=== PATIENT | female | born 1985 | race Caucasian/White ===

== ENCOUNTER 2018-05-21 18:18 | Emergency (ER) | payer MEDICAID ==
[~2018-05-21] VITALS: Ht 170.2 cm; Wt 92.3 kg
[~2018-05-21 18:18] MED LIST: NAPR-56 PO; NO HOME MEDS; ONDA4TAB59 PO
[2018-05-21 18:25] VITALS: BP 114/65
[2018-05-21] MEDS ORDERED: LIDOcaine 1.5% w/epinephrine 1:200,000 5ml ampul IJ ONE (19:15)
[2018-05-21] MEDS ORDERED: LIDOcaine 1% w/epiNEPHrine 1:200,000 30ml vial IJ ONE (19:20)
--- NOTE | 2018-05-21 19:28 | NUR ---
pt numbed by PA, awaiting wound repair with sutures
== END 2018-05-21 20:10 | disposition home or self-care (01) ==
LOC: ER 18:19
DX: S61.411A Laceration without foreign body of right hand, initial encounter (principal); G89.29 Other chronic pain; F12.90 Cannabis use, unspecified, uncomplicated; W18.49XA Other slipping, tripping and stumbling without falling, initial encounter; Y93.89 Activity, other specified; Y92.89 Other specified places as the place of occurrence of the external cause; Y99.9 Unspecified external cause status
CPT/HCPCS: 12002; 99283; J3490

== ENCOUNTER 2018-05-25 20:39 | Emergency (ER) | payer MEDICAID ==
[~2018-05-25] VITALS: Ht 170.2 cm; Wt 95.9 kg
[2018-05-25 20:43] VITALS: BP 90/60
--- NOTE | 2018-05-25 21:16 | NUR ---
PT IS 32 YO FEMALE C/O 3RD DIGIT SWELLING, +PAIN X2 DAYS, PT HAD CYST REMOVED 2 WEEKS AGO, FELL ONE WEEK AGO AND HAD 2 NEW SUTURES PLACED, JUST MOVED FROM [facility] AND HASN'T FOLLOW UP WITH SURGEON, WAITING TO BE EVALUATED
[2018-05-25] MEDS ORDERED: bacitracin 15gm ointment TP ONE (22:15)
--- NOTE | 2018-05-25 22:22 | NUR ---
BACTRICIN APPLIED TO SURGICAL WOUND ON HAND, DRESSED WITH NONADHERENT AND COBAN BY CAD PROGRAMMER, PT JEANINE WELL, PLANS TO ESTABLISH WITH PMD IN [place]
== END 2018-05-25 22:25 | disposition home or self-care (01) ==
LOC: ER 20:39
DX: S61.411D Laceration without foreign body of right hand, subsequent encounter (principal); G89.29 Other chronic pain; F12.10 Cannabis abuse, uncomplicated; Z79.899 Other long term (current) drug therapy; W18.49XD Other slipping, tripping and stumbling without falling, subsequent encounter
CPT/HCPCS: 99282

== ENCOUNTER 2018-10-07 13:24 | Emergency (ER) | payer MEDICAID ==
[~2018-10-07] VITALS: Ht 170.2 cm; Wt 90.9 kg
[2018-10-07] MEDS ORDERED: TRAM50TA2 PO (14:50)
[2018-10-07 15:05] VITALS: BP 97/58
== END 2018-10-07 15:06 | disposition home or self-care (01) ==
LOC: ER 13:25
DX: M79.675 Pain in left toe(s) (principal); M79.674 Pain in right toe(s); F12.90 Cannabis use, unspecified, uncomplicated; G89.29 Other chronic pain; Z79.899 Other long term (current) drug therapy; W20.8XXA Other cause of strike by thrown, projected or falling object, initial encounter; Y93.89 Activity, other specified; Y92.89 Other specified places as the place of occurrence of the external cause; Y99.8 Other external cause status
CPT/HCPCS: 73660; 99283

== ENCOUNTER 2021-05-04 17:47 | Emergency (ER) | payer MEDICAID ==
[~2021-05-04] VITALS: Ht 170.2 cm; Wt 100.0 kg
[2021-05-04 18:08] VITALS: BP 112/85
[2021-05-04 18:59] LABS: URINE HCG NEGATIVE (NEG)
[2021-05-04 19:01] LABS: CLARITY,URINE CLOUDY (Clear); COLOR,URINE YELLOW (Yellow); GLUCOSE, URINE NEGATIVE (Neg); KETONES,URINE NEGATIVE (Neg); LEUKOCYTE ESTERASE ,URINE TRACE (Neg); NITRITES, URINE POSITIVE (Neg); OCCULT BLOOD,URINE LARGE (Neg); PH,URINE 5.5 (4.8-8.0); PROTEIN,URINE 100 mg/dl (Neg)
[2021-05-04 19:11] LABS: UA COLLECTION TYPE CLN CATCH MIDSTREAM
[2021-05-04 19:14] LABS: BACTERIA,URINE 2+ /HPF (Neg); RBC,URINE TNTC /HPF (0-2); SQUAMOUS EPITHELIAL CELL,UR FEW /LPF (FEW); WBC,URINE 50-100 /HPF (0-4)
[2021-05-04] MEDS ORDERED: phenazopyridine 100mg tablet PO ONE (19:35)
[2021-05-04] MEDS ORDERED: sulfamethoxazole/trimethoprim DS (800/160mg) tablet PO ONE (19:35)
[2021-05-04] MEDS ORDERED: SULF1TAB45 PO (19:37)
[2021-05-04] MEDS ORDERED: PHEN-786 PO (19:37)
== END 2021-05-04 19:52 | disposition home or self-care (01) ==
LOC: ER 17:49
DX: N39.0 Urinary tract infection, site not specified (principal); G89.29 Other chronic pain; F12.90 Cannabis use, unspecified, uncomplicated; Z91.041 Radiographic dye allergy status; Z79.899 Other long term (current) drug therapy
CPT/HCPCS: 81001; 81025; 87077; 87088; 87186; 99283

== ENCOUNTER 2021-07-30 10:47 | Emergency (ER) | payer MEDICAID ==
[~2021-07-30] VITALS: Ht 170.2 cm; Wt 103.6 kg
[~2021-07-30 10:47] MED LIST changes: +PHEN-786 PO
[2021-07-30 10:58] VITALS: BP 120/90
== END 2021-07-30 12:17 | disposition home or self-care (01) ==
LOC: ER 10:48
DX: R07.89 Other chest pain (principal); R05.9 Cough, unspecified; G89.29 Other chronic pain; F12.90 Cannabis use, unspecified, uncomplicated; Z98.890 Other specified postprocedural states; Z72.0 Tobacco use; Z88.8 Allergy status to other drugs, medicaments and biological substances; Z79.899 Other long term (current) drug therapy; V89.2XXA Person injured in unspecified motor-vehicle accident, traffic, initial encounter; Y93.89 Activity, other specified; Y92.89 Other specified places as the place of occurrence of the external cause; Y99.8 Other external cause status
CPT/HCPCS: 71046; 99283

== ENCOUNTER 2022-05-07 09:34 | Emergency (ER) | payer MEDICAID ==
[~2022-05-07] VITALS: Ht 170.2 cm; Wt 104.0 kg
[2022-05-07 10:11] LABS: URINE HCG NEGATIVE (NEG)
[2022-05-07 10:15] LABS: BASOPHILS # (AUTO) 0.1 X10'3 (0-0.2); BASOPHILS % (AUTO) 0.7 % (0-1); EOSINOPHILS # (AUTO) 0.2 X10'3 (0-0.9); EOSINOPHILS % (AUTO) 1.8 % (0-6); HEMATOCRIT 40.4 % (35.0-45.0); LYMPHOCYTES # (AUTO) 2.4 X10'3 (1.1-4.8); LYMPHOCYTES % (AUTO) 26.2 % (21-51); MEAN CORPUSCULAR HEMOGLOBIN 28.6 PG (27.0-31.0); MEAN CORPUSCULAR HGB CONC 32.2 g/dL (33.0-36.5); MEAN CORPUSCULAR VOLUME 88.6 FL (78-98); MEAN PLATELET VOLUME 8.4 FL (7.4-10.4); MONOCYTES # (AUTO) 0.8 X10'3 (0-0.9); MONOCYTES % (AUTO) 8.4 % (2-12); NEUTROPHILS # (AUTO) 5.8 X10'3 (1.8-7.7); NEUTROPHILS % (AUTO) 62.9 % (42-75); PLATELET COUNT 317 X10'3 (140-440); RED BLOOD COUNT 4.56 X10'6 (4.20-5.60); RED CELL DISTRIBUTION WIDTH 13.4 % (11.5-14.5); WHITE BLOOD COUNT 9.3 X10'3 (4.5-11.0)
[2022-05-07 10:15] LABS: CLARITY,URINE CLOUDY (Clear); COLOR,URINE YELLOW (Yellow); GLUCOSE, URINE NEGATIVE (Neg); KETONES,URINE NEGATIVE (Neg); LEUKOCYTE ESTERASE ,URINE NEGATIVE (Neg); NITRITES, URINE NEGATIVE (Neg); OCCULT BLOOD,URINE NEGATIVE (Neg); PROTEIN,URINE NEGATIVE (Neg); UROBILINOGEN,URINE 0.2 E.U/dL (0.2-1.0)
[2022-05-07 10:21] LABS: UA COLLECTION TYPE CLN CATCH MIDSTREAM
[2022-05-07 10:21] LABS: ALANINE AMINOTRANSFERASE 26 U/L (12-78); ALBUMIN 3.8 G/DL (3.4-5.0); ALKALINE PHOSPHATASE 73 IU/L (46-116); ANION GAP 11 (8-16); ASPARTATE AMINO TRANSFERASE 18 U/L (10-37); BILIRUBIN,TOTAL 0.3 MG/DL (0.1-1.0); BLOOD UREA NITROGEN 12 MG/DL (7-18); BUN/CREATININE RATIO 17.9 (6.6-38.0); CALCIUM 8.7 MG/DL (8.5-10.1); CHLORIDE 104 MMOL/L (99-107); CREATININE 0.67 MG/DL (0.40-0.90); GLUCOSE 98 MG/DL (70-104); LIPASE 91 U/L (73-393); SODIUM 138 MMOL/L (135-145); TOTAL CARBON DIOXIDE 23.5 MMOL/L (24-32); TOTAL PROTEIN 7.5 G/DL (6.4-8.2); eGFR > 90 ML/MIN
[2022-05-07 10:25] LABS: MUCUS STRANDS MANY /LPF (Neg); SQUAMOUS EPITHELIAL CELL,UR MANY /LPF (FEW)
[2022-05-07 10:29] LABS: BACTERIA,URINE FEW /HPF (Neg); RBC,URINE 0-2 /HPF (0-2); WBC,URINE 0-4 /HPF (0-4)
[2022-05-07 11:49] VITALS: BP 108/74
--- NOTE | 2022-05-07 12:05 | NUR ---
I agree with the general assessment performed by Cynthia CARDOSO.
[2022-05-07] MEDS ORDERED: LIDOcaine 5% patch TP STA (12:33)
== END 2022-05-07 13:14 | disposition home or self-care (01) ==
LOC: ER 09:34
DX: R07.89 Other chest pain (principal); G89.29 Other chronic pain; F12.90 Cannabis use, unspecified, uncomplicated; Z98.890 Other specified postprocedural states; Z79.899 Other long term (current) drug therapy
CPT/HCPCS: 36415; 80053; 81001; 81025; 83690; 85025; 99283

== ENCOUNTER 2023-03-14 11:22 | Emergency (ER) | payer MEDICAID ==
[~2023-03-14] VITALS: Ht 170.2 cm; Wt 104.5 kg
[2023-03-14 11:32] VITALS: BP 128/60; PULSE 65; RESP 16; TEMP 97.8; O2SAT 98
[2023-03-14] MEDS ORDERED: NAPR-56 PO (13:36)
--- NOTE | 2023-03-14 14:19 | NUR ---
AUDITING CLERK ASSESSMENT REVIEWED BY ADELE RNC; CS; APPROVED
== END 2023-03-14 16:27 | disposition left against medical advice (07) ==
LOC: ER 11:22
DX: M79.672 Pain in left foot (principal); F12.90 Cannabis use, unspecified, uncomplicated; Z91.041 Radiographic dye allergy status; Z79.899 Other long term (current) drug therapy
CPT/HCPCS: 73630; 99284

== ENCOUNTER 2023-09-22 15:07 | Outpatient (CLI) | payer MEDICAID | END 2023-09-22 23:59 | disposition home or self-care (01) | LOC: RAD 15:07 | PROVIDERS: ATTEND Family Medicine | DX: M25.531 Pain in right wrist (principal); M79.601 Pain in right arm | CPT/HCPCS: 73090; 73110 ==

== ENCOUNTER 2025-01-11 10:32 | Emergency (ER) | payer MEDICAID ==
[~2025-01-11] VITALS: Ht 170.2 cm; Wt 101.0 kg
[2025-01-11 10:34] VITALS: BP 105/65; PULSE 80; RESP 16; TEMP 97.6; O2SAT 97
--- NOTE | 2025-01-11 11:00 | Physician Documentation ---
History of Present Illness ~ Chief Complaint: Finger pain Stated Complaint: L FINGER PAIN Time Seen by MD: 10:54 Primary Medical Doctor: [facility] Source: patient Mode of Arrival: POV Exam Limitations: no limitations HPI 39-year-old right-handed female with a left 5th digit pain along with pain in her 5th metacarpal which occurred this morning when she was moving a couch in her pinky finger was slammed in between the couch in the doorway. She states she is able to straighten her finger but it is painful to do so. No prior injuries in his finger. No injury to the nail plate. No pain in wrist. Tetanus within 5 years: No Medication Reconciliation Allergies: Coded Allergies: iodine (Verified Allergy, Severe, bad skin rash, 10/07/18) Uncoded Allergies: MEDICAL SOAP (Allergy, Severe, 03/14/23) Scheduled Naproxen (Naproxen), 500 MG PO Q12H Ondansetron Hcl (Ondansetron Hcl), 4 MG PO Q8H PRN N/V Phenazopyridine Hcl (Pyridium tablet), 1 TAB PO Q8H Miscellaneous Medications Home Med List (No Home Medications), (Reported) Past Medical History Past Medical History: Chronic Back Pain Past Surgical History: orthopedic surgeries Alcohol Use: None Drug Use: marijuana Lives with: Family Lives In: Home Occupation: employed Review of Systems All Other Systems at this time: Reviewed and Negative Physical Exam Vital Signs: Temperature: 97.6, Source: Temporal, Heart Rate: 80, Respiratory Rate: 16, BP: 105/65, Pulse Oximetry: 97, Weight: 101.000 Oxygen Flow Rate: 0 Physical Exam GENERAL: Alert, no acute distress. HEENT: NCAT, EOMI, PERRL, normal oropharynx, moist oral mucosa. NECK: Supple, trachea midline. CARDIAC: Regular rate and rhythm, no murmurs, rubs, or gallops. PV: Equal distal pulses. No lower extremity edema, cap refill less than 2 seconds. RESPIRATORY: Equal breath sounds, clear to auscultation bilaterally, no respiratory distress. MUSCULOSKELETAL: LEFT 5TH DIGIT NORMAL INSPECTION, TTP OVER PROXIMAL/BASE OF DIGIT AND 5TH METACARPAL. NO ECCHYMOSIS, ERYTHEMA, SKIN INTACT. NEUROLOGICAL: Awake, alert, and oriented x 3. SKIN: Warm/dry, no pallor, no rash. PSYCH: Alert and appropriate. Affect congruent with mood. Speech is clear. Good eye contact. Procedures Procedures PLACED LEFT WRIST HAND IN VOLAR VELCRO SPLINT XRAY OF LEFT HAND NEGATIVE FOR FRACTURE, DISLOCATION OR ANY ACUTE FINDINGS Progress Results/Orders Results/Orders Orders - SAM ANTHONY General Nursing Order (01/11/25 ) Vital Signs 01/11/25 10:34 Temp 97.6 Pulse 80 Resp 16 B/P (MAP) 105/65 Pulse Ox 97 O2 Flow Rate 0 Medical Decision Making Hand Diff Dx:Considerations: Include: Abrasion, Arthritis, Contusion, DJD, Felon, Fracture-carpal, Fracture-metacarpal, Fracture-phalynx, Fracture-radius, Fracture-ulna, Gout, Hematoma, Herpetic marcy, Laceration, Neurovascular injury, Open fracture, Paronychia, Rheumatoid arthritis, Septic, Sprain, Subungual hematoma, Tenosynovitis, Volar plate injury, Cellulitis, Malunion, Other Departure Time of Disposition: 10:59 Disposition: 01 HOME / SELF CARE / HOMELESS Impression: Primary Impression: Hand pain, left Additional Impression: Finger pain, left Condition: Stable Discharge Instructions: Hand Pain Additional Instructions: I DO NOT APPRECIATE FRACTURE ON XRAYS REST, ICE, MOTRIN, IF PAIN PERSISTS AFTER 14DAYS RECOMMEND REPEAT XRAYS Referrals: NO PRIMARY CARE PROVIDER (PCP) Education Educated: Patient Educated regarding: diagnosis, treatment, need for follow up Signature Scribe Signature: X Attestation: SAM ALLEN Jan 11, 2025 11:00
--- NOTE | 2025-01-11 11:06 | RADIOLOGY REPORT ---
EXAM: DI FINGER(S) CLINICAL INDICATION: LEFT 5TH DIGIT Pain TECHNIQUE: DI FINGER(S), 3v Comparison: None FINDINGS/IMPRESSION: There is no evidence of acute fracture or dislocation. The visualized joint space is well maintained. The alignment is anatomical. There is no radiopaque foreign body.
== END 2025-01-11 11:17 | disposition home or self-care (01) ==
LOC: ER 10:33
DX: M79.645 Pain in left finger(s) (principal); F12.90 Cannabis use, unspecified, uncomplicated; Z88.8 Allergy status to other drugs, medicaments and biological substances; Z79.899 Other long term (current) drug therapy
CPT/HCPCS: 29125; 73140; 99283; A6449

== ENCOUNTER 2025-03-03 08:19 | Emergency (ER) | payer MEDICAID ==
[~2025-03-03] VITALS: Ht 170.2 cm; Wt 106.4 kg
[2025-03-03] MEDS: normal saline 1000ML IV soln IVB ONE ×2 (09:04→10:00)
[2025-03-03 09:22] LABS: MEAN PLATELET VOLUME 8.0 FL (7.4-10.4); RED CELL DISTRIBUTION WIDTH 15.0 % (11.5-14.5)
--- NOTE | 2025-03-03 09:36 | Physician Documentation ---
History of Present Illness ~ Chief Complaint: ETOH Stated Complaint: ETOH WITHDRAWAL Time Seen by MD: 08:54 [facility] Source: patient (4) Mode of Arrival: POV HPI Patient comes in for evaluation after significant intoxication last night. She reports that at baseline she drinks about one beer per day, last night was at a bar and had at least seven beers, a shot of hard alcohol, and a Tati. She began vomiting at about 1:00 a.m. in the morning and has continued to vomit throughout the morning. She reports that she was losing circulation to her hands, by which she means that she was feeling tingling throughout her hands and arms. She reports that she felt scared, had blurry vision, denies any blood in the emesis. She also reports headache. On arrival, the patient was rather hysterical, crying, and hyperventilating, but is calmer now. She continues to retch. Tetanus within 5 years?: No Medication Reconciliation Allergies: Coded Allergies: iodine (Verified Allergy, Severe, bad skin rash, 10/07/18) Uncoded Allergies: MEDICAL SOAP (Allergy, Severe, 03/14/23) Scheduled Naproxen (Naproxen), 500 MG PO Q12H Ondansetron Hcl (Ondansetron Hcl), 4 MG PO Q8H PRN N/V Phenazopyridine Hcl (Pyridium tablet), 1 TAB PO Q8H Miscellaneous Medications Home Med List (No Home Medications), (Reported) Past Medical History Past Medical History: No Pertinent History, Chronic Back Pain Past Surgical History: orthopedic surgeries Smoking Status: Never smoker Alcohol Use: Occasionally Drug Use: marijuana Lives with: Family Lives In: Home Occupation: employed Review of Systems All Other Systems at this time: Reviewed and Negative Physical Exam Vital Signs: Temperature: 98.0, Source: Oral, Heart Rate: 104, Respiratory Rate: 24, BP: 140/75, Pulse Oximetry: 99, Weight: 106.360 Oxygen Flow Rate: 0 Physical Exam General: Pt is awake, alert, oriented x4 in moderate distress and acutely ill appearing, holding an emesis bag. Head: Normocephalic and atraumatic. Eyes: Conjunctiva injected ENT: Mucous membranes dry Neck: Supple. Chest: Clear to auscultation bilaterally, without rales, rhonchi, or wheezes. There is no accessory muscle use or retractions. Cardiac: Regular rate and rhythm without murmurs, gallops or rubs. Palpation of the chest wall is normal. Abd: Soft, nondistended, nontender, with normoactive bowel sounds. No guarding or rebound. Extremities: Within normal limits without cyanosis, clubbing, or edema. Skin: [place], warm and dry with no significant rash appreciated. Neuro: Cranial nerves II-XII grossly intact. The gait is normal. Progress Results/Orders Results/Orders Orders - ESTELITA HARGROVE MD Monitor (03/03/25 08:54) Saline Lock (03/03/25 08:54) Nothing By Mouth (03/03/25 Lunch) Completed Orders - ESTELITA HARGROVE MD Cbc/Diff (03/03/25 08:54) Lipase (03/03/25 08:54) Hcg Serum Ql (03/03/25 08:54) Drug Screen, Urine (03/03/25 08:54) Normal Saline 1000ml (0.9% Sodium Chlori (03/03/25 08:55) Normal Saline 1000ml (0.9% Sodium Chlori (03/03/25 08:55) CMP (03/03/25 08:54) Ondansetron Inj. (Zofran 4mg/2ml Vial) (03/03/25 09:40) Pantoprazole 40mg Iv (Protonix 40mg Iv) (03/03/25 09:40) Ethanol (03/03/25 09:03) Acetaminophen 325mg Tablet (Tylenol Tabl (03/03/25 10:55) Medications Received in ER Medications (Trade) Dose Ordered Sig/Alana Route PRN Reason Start Time Stop Time Status Last Admin Dose Admin (0.9% sodium chloride (NS) 1000ml IV soln) 500 ml ONCE ONCE IVB 03/03/25 08:55 03/03/25 08:56 DC 03/03/25 10:00 500 ML (0.9% sodium chloride (NS) 1000ml IV soln) 1,000 ml ONCE ONCE IVB 03/03/25 08:55 03/03/25 08:59 DC 03/03/25 09:04 1,000 ML (Zofran 4mg/2ml vial) 4 mg ONCE ONCE IV 03/03/25 09:40 03/03/25 09:41 DC 03/03/25 09:52 4 MG (Protonix 40mg IV) 40 mg ONCE ONCE IV 03/03/25 09:40 03/03/25 09:41 DC 03/03/25 09:51 40 MG (Tylenol tablet) 650 mg ONCE ONCE PO 03/03/25 10:55 03/03/25 10:56 DC 03/03/25 11:00 650 MG Vital Signs 03/03/25 03/03/25 03/03/25 08:23 08:28 10:07 Temp 98.0 98.1 Pulse 104 86 Resp 24 24 16 B/P (MAP) 140/75 90/65 (73) Pulse Ox 99 97 O2 Flow Rate 0 0 Laboratory Tests Test 03/03/25 09:03 03/03/25 10:37 White Blood Count 11.1 H Red Blood Count 4.76 Hemoglobin 12.3 Hematocrit 39.2 Mean Corpuscular Volume 82.2 Mean Corpuscular Hemoglobin 25.8 L Mean Corpuscular Hemoglobin Concent 31.4 L Red Cell Distribution Width 15.0 H Platelet Count 414 Mean Platelet Volume 8.0 Neutrophils (%) (Auto) 67.3 Lymphocytes (%) (Auto) 22.8 Monocytes (%) (Auto) 7.3 Eosinophils (%) (Auto) 1.4 Basophils (%) (Auto) 1.2 H Neutrophils # (Auto) 7.5 Lymphocytes # (Auto) 2.5 Monocytes # (Auto) 0.8 Eosinophils # (Auto) 0.2 Basophils # (Auto) 0.1 CBC Comment Sodium Level 141 Potassium Level 3.7 Chloride Level 108 H Carbon Dioxide Level 21.8 L Anion Gap 11 Blood Urea Nitrogen 13 Creatinine 0.69 Estimated GFR/1.73 m2 > 90 BUN/Creatinine Ratio 18.8 Glucose Level 110 H Calcium Level 8.8 Total Bilirubin 0.3 Aspartate Amino Transf (AST/SGOT) 21 Alanine Aminotransferase (ALT/SGPT) 48 Alkaline Phosphatase 108 Total Protein 8.0 Albumin 3.6 Globulin 4.4 H Albumin/Globulin Ratio 0.8 L Lipase 26 Human Chorionic Gonadotropin, Qual Negative Chemistry Comments Ethyl Alcohol Level < 10 Urine Opiates Screen Negative Urine Methadone Screen Negative Urine Fentanyl Screen Negative Urine Barbiturates Screen Negative Urine Phencyclidine Screen Negative Urine Amphetamines Screen Negative Urine Benzodiazepines Screen Negative Urine Cocaine Screen Negative Urine Cannabinoids Screen Positive Drug Screen Comment Re-Evaluation Re-Evaluation : Re-Evaluation Time: 12:51 Progress Patient is feeling much improved, has no longer a headache, no abdominal pain, not feeling anxious, and not hyperventilating anymore. She states she feels ready to go home, and is planning to not drink anymore alcohol. Medical Decision Making Additional Comment Patient presenting with alcohol intoxication, with quite a lot of vomiting, dehydration, and headache, all of which are improved after treatment in the emergency department. She has had no further episodes of tingling in the extremities, ventilation, or carpopedal spasm. She is tolerating fluids without difficulty but I will send her home with two weeks of Protonix as well as some Zofran in case she is feeling dehydrated at home. Patient understands to follow up with her regular physician, to seek counseling, to continue sobriety, and to return to the emergency department if she has any further concerns. Departure Time of Disposition: 12:52 Disposition: 01 HOME / SELF CARE / HOMELESS Impression: Primary Impression: Alcohol causing toxic effect Qualified Codes: T51.94XA - Toxic effect of unspecified alcohol, undetermined, initial encounter Additional Impressions: Vomiting Qualified Codes: R11.2 - Nausea with vomiting, unspecified Hyperventilation Condition: Stable Discharge Instructions: Gastritis, Adult Additional Instructions: Please continue to avoid alcohol, stay well hydrated, and perhaps seek counseling which will help you with your sobriety. I am sending you home with some prescriptions to help with nausea and with stomach upset. Follow-up with your regular physician. Return to the emergency department if any new symptoms or concerns. Referrals: NO PRIMARY CARE PROVIDER (PCP) Prescriptions Ondansetron 8mg ODT (Ondansetron Odt) 8 Mg Tab.rapdis 1 TAB PO TID PRN for nausea/vomiting, #10 TAB Prov: ESTELITA HARGROVE MD 03/03/25 Pantoprazole Sodium (PROTONIX tablet) 40 Mg Tablet.dr 1 TAB PO DAILY, #14 TAB 0 Refills Prov: ESTELITA HARGROVE MD 03/03/25 Education Educated: Patient Educated regarding: diagnosis, treatment Signature Scribe Signature: Attestation: ESTELITA HARGROVE MD Mar 03, 2025 09:36
[2025-03-03 09:38] LABS: CREATININE 0.69 MG/DL (0.40-0.90); TOTAL CARBON DIOXIDE 21.8 MMOL/L (24-32); eCRCL 105 ML/MIN; eGFR > 90 ML/MIN
[2025-03-03] MEDS: ondansetron/PF 4mg/2ml inj IV ONE (09:52)
[2025-03-03 10:05] LABS: HCG SERUM QL NEGATIVE
[2025-03-03 10:07] VITALS: TEMP 98.1
[2025-03-03 10:49] LABS: ETHANOL < 10 MG/DL (<10)
[2025-03-03 12:34] LABS: URINE AMPHETAMINE SCREEN NEGATIVE (Neg); URINE BARBITUATE SCREEN NEGATIVE (Neg); URINE BENZODIAZEPINES SCREEN NEGATIVE (Neg); URINE CANNABINOID SCREEN POSITIVE (Neg); URINE COCAINE SCREEN NEGATIVE (Neg); URINE METHADONE SCREEN NEGATIVE (Neg); URINE OPIATE SCREEN NEGATIVE (Neg); URINE PHENCYCLIDINE SCREEN NEGATIVE (Neg)
[2025-03-03] MEDS ORDERED: PANT-47 PO (12:55)
[2025-03-03] MEDS ORDERED: ONDA-245 PO (12:55)
[2025-03-03 13:02] VITALS: BP 103/64; PULSE 72; RESP 18; O2SAT 97
== END 2025-03-03 13:03 | disposition home or self-care (01) ==
LOC: ER 08:19
DX: T51.91XA Toxic effect of unspecified alcohol, accidental (unintentional), initial encounter (principal); R06.4 Hyperventilation; R11.10 Vomiting, unspecified; F12.90 Cannabis use, unspecified, uncomplicated; Z88.8 Allergy status to other drugs, medicaments and biological substances; Z79.899 Other long term (current) drug therapy; Y90.0 Blood alcohol level of less than 20 mg/100 ml; Y92.89 Other specified places as the place of occurrence of the external cause
CPT/HCPCS: 36415; 80053; 80305; 80320; 83690; 84703; 85025; 96361; 96374; 96375; 99284; J2405; J2470; J7030